=== PATIENT | female | born 1980 | race Caucasian/White ===

== ENCOUNTER 2017-07-08 21:31 | Emergency (ER) | payer MEDICAID ==
--- NOTE | 2017-07-08 23:44 | ED Physician Chart ---
ED Chief Complaint/HPI - Patient Information Date Seen:: 07/08/17 Time Seen:: 23:38 Chief Complaint:: Right upper lip abscess History of Present Illness:: 36 yo female had right upper lip abscess with pain and numbness for 3 days. She felt headache and chills. She had history of DM II for 1 year and her PCP recently added the third medication due to poorly controlled diabetes. Vitals:: Vital Signs - 8 hr 07/08/17 22:26 Temp 97.8 F HR 91 RR 18 BP 140/87 O2 Sat % 99 ED Review of Systems - Review of Systems General/Constitutional: Chills Skin: Skin lesions Head: Headache Eyes: No pain ENT: No nasal drainage, Other (right upper lip swelling) Neck: Neck pain Cardio Vascular: No chest pain Pulmonary: No SOB GI: No nausea, No vomiting Musculoskeletal: No bone or joint pain ED Past Medical History - Past Medical History Past Medical History: HTN, DM Social History: Smoker, No Alcohol, No Drug Use Surgical History: None Family Medical History - Family Member Mother History Unknown: Yes ED Physical Exam - Physical Examination General/Constitutional: Awake, Alert Eyes: PERRL Other Skin comments:: Right upper lip swelling, tenderness ENMT: Oropharynx nl Neck: No nuchal rigidity Respiratory: Clear to Auscultation Cardio Vascular: RRR, No murmur, gallop, rubs, NL S1 S2 GI: No tenderness/rebounding/guarding Extremities: normal strength in all extremities Neuro/Psych: No focal deficits ED Assessment - Assessment General Assessment: Right upper lip abscess Leukocytosis DM II uncontrolled Dehydration Assessment/Comments:: Rocephin 1g IV NS 1L IV bolus Tylenol DC home Keflex 500mg PO q6h F/u PCP for better control of DM II ED Septic Shock - . Is Septic Shock (SBP<90, OR Lactate>4 mmol\L) present?: No - <6hrs of presentation: Vital Signs: Vital Signs - 8 hr 07/08/17 22:26 Temp 97.8 F HR 91 RR 18 BP 140/87 O2 Sat % 99 ED Reassessment (Disposition) - Reassessment Reassessment Condition:: Improved - Patient Disposition Discharge/Transfer:: Home ED Discharge Plan - Patient Disposition Admit/Discharge/Transfer: PT DISCHARGED HOME Condition at Disposition: Stable Prescriptions: Cephalexin [Keflex] 500 mg PO Q6H #28 cap Instructions: Abscess Additional Instructions: MAKE A FOLLOW UP WITH PRIMARY MEDICAL DOCTOR TOMORROW, COMPLY WITH PRESCRIBED MEDICATION, GO BACK TO EMERGENCY ROOM IF SYMPTOMS WORSEN.
[2017-07-09 00:06] LABS: % BASOPHILS 0.5 % (0.0-2.0); % EOSINOPHILS 2.9 % (0.0-5.0); % LYMPHOCYTES 25.4 % (20.0-50.0); % MONOCYTES 4.9 % (2.0-10.0); % NEUTROPHILS 66.3 % (40.0-80.0); BASOPHILE ABSOLUTE 0.1 Th/cumm (0-0.2); EOSINOPHILE ABSOLUTE 0.3 Th/cmm (0.1-0.4); HEMOGLOBIN 14.3 gm/dL (12-16); MEAN CELL VOLUME 87.6 fl (81-100); MEAN CORPUSCULAR HEMOGLOBIN 29.1 pg (27.0-31.0); MEAN CORPUSCULAR HGB CONC 33.2 pg (28.0-36.0); MEAN PLATELET VOLUME 9.2 fl; MONOCYTE ABSOLUTE 0.6 Th/cmm (0.3-1.0); NEUTROPHILE ABSOLUTE 7.7 Th/cmm (1.8-8.0); PLATELET COUNT 265 Th/cmm (150-400); RED BLOOD COUNT 4.91 Mil/cmm (3.80-5.10); RED CELL DISTRIBUTION WIDTH 12.2 % (11.5-20.0); WHITE BLOOD COUNT 11.7 Th/cmm (4.8-10.8)
[2017-07-09 00:21] LABS: ALB/GLOB RATIO 1.1 (1.0-1.8); ALBUMIN 4.1 gm/dL (3.7-5.3); ALKALINE PHOSPHATASE 127 U/L (34-104); ANION GAP 9.9 (7.0-16.0); BILIRUBIN,TOTAL 0.6 mg/dL (0.3-1.0); BUN - UREA NITROGEN 12 mg/dL (7-25); CALCIUM SERUM 9.3 mg/dL (8.6-10.3); CARBON DIOXIDE 27.8 mEq/L (21.0-31.0); CHLORIDE 98 mEq/L (98-107); CREATININE - SERUM 0.5 mg/dL (0.6-1.2); GFR AFRICAN-AMERICAN > 60.0 ml/min (>90); GFR NON AFRICAN-AMERICAN > 60.0 ml/min; GLUCOSE 310 mg/dL (70-105); POTASSIUM SERUM 3.7 mEq/L (3.5-5.1); SGOT 31 U/L (13-39); SGPT/ALT 61 U/L (7-52); SODIUM SERUM 132 mEq/L (136-145); TOTAL PROTEIN,SERUM 7.7 gm/dL (6.0-8.3)
[2017-07-09] MEDS ORDERED: cefTRIAXone 1 GM in Sodium Chloride 0.9% 50 ML IV ONE (00:34)
[2017-07-09] MEDS ORDERED: Sodium Chloride 0.9% 1,000 ML IV ONE (00:35)
[2017-07-09 18:03] LABS: A1C % 13.5 % (4.0-6.0)
== END 2017-07-09 01:55 | disposition home or self-care (01) ==
LOC: ER 21:31
DX: K13.0 Diseases of lips (principal); D72.829 Elevated white blood cell count, unspecified; E11.9 Type 2 diabetes mellitus without complications; E86.0 Dehydration; I10 Essential (primary) hypertension; F17.200 Nicotine dependence, unspecified, uncomplicated
CPT/HCPCS: 99284; 96365; 36415; 85025; 83036; 80053; J0696; J7030; Z7502; Z7610